=== PATIENT | male | born 1935 | race Caucasian/White ===

== ENCOUNTER 2017-07-08 09:08 | Outpatient (CLI) | payer MEDICARE, OTHER ==
--- NOTE | 2017-07-08 10:47 | Ultrasound Report ---
CAROTID DUPLEX: 07/08/2017 CLINICAL INDICATION: Stenosis. COMPARISON: 10/13/2006 TECHNIQUE: Real-time sonographic vascular imaging was performed by the clinical informatics strategist through the carotid arteries utilizing both color-flow and Doppler spectral analysis. Multiple sales representative business courses static images were saved for review. Vessel PSV cm/sec 2D Plaque Estimate % EDV cm/sec ICA/CCA PSV % Stenosis RCCA Prox 70 -- RCCA Dist 169 6 RECA 170 -- RT BULB 351 -- 26 2.1 MARIBEL Prox 252 -- 34 1.5 MARIBEL Mid 139 -- 2 0.8 MARIBEL Dist 82 -- 12 0.5 RVA 50 RVA flow direction: Antegrade. Vessel PSV cm/sec 2D Plaque Estimate % EDV cm/sec ICA/CCA PSV % Stenosis LCCA Prox 124 -- LCCA Dist 80 9 LECA 280 -- LFT BULB 90 -- 10 1.1 LICA Prox 105 -- 13 1.3 LICA Mid 108 -- 20 1.4 LICA Dist 125 -- 1.6 15 LVA 63 LVA flow direction: Antegrade. Velocity criteria are extrapolated from diameter data as defined by the Society of Radiologists in Ultrasound Consensus Conference Radiology 2003; 229; 340-346. Degree of Stenosis % ICA PSV cm/sec Plaque Estimate % ICA/CCA RSV Ratio ICA EDV cm/sec Normal < 125 None < 2.0 < 40 <50 < 125 < 50 < 2.0 < 40 50-69 125 - 130 >/= 50 2.0 - 4.0 40 - 100 >/= 70 but less than near occlusion > 230 >/= 50 > 4.0 > 100 Near occlusion High, low, or undetectable Visible lumen Variable Variable Total occlusion Undetectable No detectable lumen Not applicable Not applicable FINDINGS RIGHT: There is calcified plaquing in the carotid bulb, producing greater than 70% luminal diameter stenosis by velocity criteria, not significantly changed from previous. LEFT: There is calcified plaquing in the left carotid bulb, without evidence of a focal hemodynamically significant stenosis. The vertebral arteries demonstrate antegrade flow bilaterally. IMPRESSION: GREATER THAN 70% LUMINAL DIAMETER NARROWING OF THE RIGHT CAROTID BULB, STABLE FROM PREVIOUS. NO SIGNIFICANT INTERVAL CHANGE. MTDD
== END 2017-07-08 09:09 | disposition home or self-care (01) ==
LOC: DI 09:08
PROVIDERS: ATTEND Physician Assistant Medical
DX: I65.21 Occlusion and stenosis of right carotid artery (principal)
CPT/HCPCS: 93880

== ENCOUNTER 2018-06-10 07:07 | Outpatient (CLI) | payer MEDICARE, OTHER ==
[2018-06-10 12:35] LABS: BASOPHILS # (AUTO) 0.1 10^3/uL (0.0-0.1); BASOPHILS % (AUTO) 0.6 %; EOSINOPHILS # (AUTO) 0.6 10^3/uL (0.0-0.7); EOSINOPHILS % (AUTO) 6.8 %; HGB - HEMOGLOBIN 14.8 g/dL (14.0-18.0); LYMPHOCYTES # (AUTO) 2.5 10^3/uL (1.5-3.5); LYMPHOCYTES % (AUTO) 30.1 %; MEAN CORPUSCULAR HEMOGLOBIN 30.3 pg (27.0-31.0); MEAN CORPUSCULAR HGB CONC 34.3 g/dL (32.0-36.0); MEAN CORPUSCULAR VOLUME 88.4 fL (80.0-94.0); MEAN PLATELET VOLUME 7.7 fL (7.4-11.4); MONOCYTES # (AUTO) 0.6 10^3/uL (0.0-1.0); NEUTROPHILS # (AUTO) 4.6 10^3/uL (1.5-6.6); NEUTROPHILS % (AUTO) 55.5 %; PLT - PLATELET COUNT 292 10^3/uL (130-450); RED BLOOD COUNT 4.88 10^6/uL (4.70-6.10); RED CELL DISTRIBUTION WIDTH 14.7 % (12.0-15.0); WHITE BLOOD COUNT 8.3 x10^3/uL (4.8-10.8)
[2018-06-10 13:08] LABS: HB2 TOTAL 16.4 g/dL; HEMOGLOBIN A1C 0.78 g/dL; HEMOGLOBIN A1C % 6.5 % (4.6-6.2)
[2018-06-10 13:51] LABS: ALBUMIN 4.1 g/dL (3.2-5.5); ALBUMIN/GLOBULIN RATIO 1.2 (1.0-2.2); ALKALINE PHOSPHATASE 51 IU/L (42-121); ALT ALANINE AMINOTRANSFERASE 23 IU/L (10-60); AST ASPARTATE AMINOTRANSFERASE 25 IU/L (10-42); BILIRUBIN,TOTAL 0.8 mg/dL (0.2-1.0); BUN - BLOOD UREA NITROGEN 26 mg/dL (6-20); CALCIUM 9.7 mg/dL (8.5-10.3); CARBON DIOXIDE - CO2 25 mmol/L (21-32); CHLORIDE 103 mmol/L (101-111); CHOL/HDL RATIO 6.7 (<5.0); CHOLESTEROL 242 mg/dL; CREATININE 1.6 mg/dL (0.6-1.2); GFR - MDRD 42 (>89); GLUCOSE 128 mg/dL (70-100); HDL CHOLESTEROL 36 mg/dL; LDL CHOLESTEROL,CALCULATED 151 mg/dL; LDL/HDL RATIO 4.2 (<3.6); SODIUM 137 mmol/L (135-145); TOTAL PROTEIN 7.6 g/dL (6.7-8.2); VLDL CHOLESTEROL 55 mg/dL
== END 2018-06-10 07:08 ==
LOC: LAB.WCP 07:07
PROVIDERS: ATTEND Physician Assistant
DX: I10 Essential (primary) hypertension (principal); E11.9 Type 2 diabetes mellitus without complications; E78.5 Hyperlipidemia, unspecified
CPT/HCPCS: 36415; 80053; 80061; 83036; 83721; 85025

== ENCOUNTER 2019-04-07 08:00 | Outpatient (CLI) | payer MEDICARE, OTHER ==
[2019-04-07 12:45] LABS: BASOPHILS # (AUTO) 0.1 10^3/uL (0.0-0.1); BASOPHILS % (AUTO) 1.4 %; EOSINOPHILS # (AUTO) 0.4 10^3/uL (0.0-0.7); EOSINOPHILS % (AUTO) 5.6 %; LYMPHOCYTES # (AUTO) 2.3 10^3/uL (1.5-3.5); LYMPHOCYTES % (AUTO) 28.9 %; MEAN CORPUSCULAR HEMOGLOBIN 29.9 pg (27.0-31.0); MEAN CORPUSCULAR HGB CONC 33.6 g/dL (32.0-36.0); MEAN CORPUSCULAR VOLUME 89.2 fL (80.0-94.0); MEAN PLATELET VOLUME 7.8 fL (7.4-11.4); MONOCYTES # (AUTO) 0.5 10^3/uL (0.0-1.0); MONOCYTES % (AUTO) 5.7 %; NEUTROPHILS # (AUTO) 4.6 10^3/uL (1.5-6.6); NEUTROPHILS % (AUTO) 58.4 %; PLT - PLATELET COUNT 290 10^3/uL (130-450); RED BLOOD COUNT 5.02 10^6/uL (4.70-6.10); RED CELL DISTRIBUTION WIDTH 14.6 % (12.0-15.0)
[2019-04-07 13:20] LABS: ALBUMIN 4.2 g/dL (3.2-5.5); ALBUMIN/GLOBULIN RATIO 1.1 (1.0-2.2); ALKALINE PHOSPHATASE 52 IU/L (42-121); ALT ALANINE AMINOTRANSFERASE 23 IU/L (10-60); AST ASPARTATE AMINOTRANSFERASE 26 IU/L (10-42); BILIRUBIN,TOTAL 0.8 mg/dL (0.2-1.0); BUN - BLOOD UREA NITROGEN 25 mg/dL (6-20); CALCIUM 9.5 mg/dL (8.5-10.3); CARBON DIOXIDE - CO2 21 mmol/L (21-32); CHLORIDE 104 mmol/L (101-111); CHOL/HDL RATIO 6.9 (<5.0); CHOLESTEROL 234 mg/dL; CREATININE 1.4 mg/dL (0.6-1.2); GFR - MDRD 49 (>89); GLUCOSE 120 mg/dL (70-100); HDL CHOLESTEROL 34 mg/dL; LDL CHOLESTEROL,CALCULATED 142 mg/dL; LDL/HDL RATIO 4.2 (<3.6); SODIUM 136 mmol/L (135-145); TOTAL PROTEIN 7.9 g/dL (6.7-8.2); VLDL CHOLESTEROL 58 mg/dL
[2019-04-07 13:44] LABS: HEMOGLOBIN A1C 0.73 g/dL; HEMOGLOBIN A1C % 6.3 % (4.6-6.2)
== END 2019-04-07 08:01 | disposition home or self-care (01) ==
LOC: LAB.WCP 08:00
PROVIDERS: ATTEND Physician Assistant
DX: E11.9 Type 2 diabetes mellitus without complications (principal); I10 Essential (primary) hypertension; E78.5 Hyperlipidemia, unspecified
CPT/HCPCS: 36415; 80053; 80061; 83036; 83721; 84443; 85025

== ENCOUNTER 2019-04-26 07:33 | Outpatient (CLI) | payer MEDICARE, OTHER ==
--- NOTE | 2019-04-26 13:01 | Ultrasound Report ---
Reason: CAROTID ARTERY STENOSIS Procedure Date: 04/26/2019 Accession Number: [id number] / [id number] Procedure: US - Carotid Doppler Complete CPT Code: FULL RESULT: EXAM: BILATERAL CAROTID AND VERTEBRAL ARTERY DUPLEX DOPPLER ULTRASOUND: EXAM DATE: 04/26/2019 09:12 AM CLINICAL HISTORY: Carotid artery stenosis. COMPARISON: CAROTID DOPPLER COMPLETE 07/08/2017 9:24 AM. TECHNIQUE: Grayscale imaging, color Doppler, and duplex spectral Doppler were used to evaluate the carotid and vertebral arteries bilaterally. Static images were obtained. FINDINGS: Intimal thickening is seen bilaterally. Echogenic shadowing plaque is seen at the right carotid bulb region, visually approximately 70% as seen on image 11. Waveforms in the downstream right internal carotid artery demonstrate preserved brisk systolic upstroke. Bilateral waveforms demonstrate early collapse of the diastolic component suggesting the possibility of aortic insufficiency possibly due to aortic valve stenosis given the pronounced early diastolic dip. The left carotid system also demonstrates atherosclerotic disease which reaches up to 50% visually on grayscale Doppler. Normal antegrade flow is present in bilateral vertebral arteries. VELOCITIES (cm/sec): Right CCA mid: PSV 50 cm/sec CCA dist: PSV 39 cm/sec ICA prox: PSV 161 cm/sec, EDV 21 cm/sec ICA mid: PSV 176 cm/sec ICA dist: PSV 77 cm/sec ECA: PSV 227 cm/sec Vert: PSV 41 cm/sec ICA/CCA: 3.5 Left CCA mid: PSV 86 cm/sec CCA dist: PSV 78 cm/sec ICA prox: PSV 114 cm/sec, EDV 25 cm/sec ICA mid: PSV 96 cm/sec, EDV 26 cm/sec ICA dist: PSV 88 cm/sec, EDV 13 cm/sec ECA: PSV 330 cm/sec Vert: PSV 44 cm/sec ICA/CCA: 1.32 ICA diameter stenosis: Right: <50% by velocity and <70% by NASCET criteria. Left: <50% by velocity and <70% by NASCET criteria. IMPRESSION: 1. By grayscale and Doppler evaluation, significant bilateral carotid artery plaquing as described. 2. In the right carotid artery system there is 50-69% stenosis by ICA to CCA ratio and peak systolic velocity with a stenosis closer to 70% by morphologic evaluation and assessment of waveforms. 3. In the left carotid artery there are no elevated carotid artery velocities to suggest hemodynamically significant stenosis. 4. Normal antegrade flow is present in bilateral vertebral arteries. 5. Question aortic valve pathology as described above, nonspecific but most likely aortic regurgitation in the setting of aortic stenosis. General Recommendations: Stenosis =50% ICA - Follow-up ultrasound 6-12 months Stenosis <50% ICA - High Risk Patient with plaque - Follow-up ultrasound 1-2 years Normal Study but High Risk Patient - Follow-up ultrasound 3-5 years Management recommendations and diagnostic criteria are based on current IAC endorsed standards in Carotid Artery Stenosis: Grayscale and Doppler Ultrasound Diagnosis. Validated velocity measurements with angiographic measurements and velocity criteria are extrapolated from diameter data as defined by the Society of Radiologists in Ultrasound Consensus Conference Radiology 2003; 229;340-346. RADIA
== END 2019-04-26 07:34 | disposition home or self-care (01) ==
LOC: DI 07:33
PROVIDERS: ATTEND Physician Assistant
DX: I65.23 Occlusion and stenosis of bilateral carotid arteries (principal)
CPT/HCPCS: 93880

== ENCOUNTER 2022-03-11 10:15 | Outpatient (CLI) | payer MEDICARE, OTHER | END 2022-03-11 23:59 | disposition home or self-care (01) | LOC: LAB.N 10:15 | PROVIDERS: ATTEND Physician Assistant Medical | DX: N30.00 Acute cystitis without hematuria (principal) | CPT/HCPCS: 87086; 87181 ==

== ENCOUNTER 2022-03-25 08:00 | Outpatient (CLI) | payer MEDICARE, OTHER | END 2022-03-25 23:59 | disposition home or self-care (01) | LOC: LAB.N 08:00 | PROVIDERS: ATTEND Family Medicine | DX: N30.00 Acute cystitis without hematuria (principal) | CPT/HCPCS: 87086 ==

== ENCOUNTER 2022-09-19 10:39 | Outpatient (CLI) | payer MEDICARE, OTHER ==
[2022-09-19] MEDS ORDERED: iohexoL-300 100 ML VIAL ONE (10:43)
[2022-09-19] MEDS ORDERED: DIATRIZOATE MEGLU/DIATRIZO SOD 30 ML BOTTLE PO ONE ×2 (10:43→12:15)
[2022-09-19 10:56] LABS: BASOPHILS # (AUTO) 0.1 10^3/uL (0.0-0.1); BASOPHILS % (AUTO) 0.5 %; EOSINOPHILS # (AUTO) 0.4 10^3/uL (0.0-0.7); EOSINOPHILS % (AUTO) 3.9 %; HCT - HEMATOCRIT 39.4 % (42.0-52.0); HGB - HEMOGLOBIN 12.8 g/dL (14.0-18.0); LYMPHOCYTES # (AUTO) 2.5 10^3/uL (1.5-3.5); LYMPHOCYTES % (AUTO) 22.4 %; MEAN CORPUSCULAR HGB CONC 32.5 g/dL (32.0-36.0); MEAN CORPUSCULAR VOLUME 89.3 fL (80.0-94.0); MEAN PLATELET VOLUME 8.7 fL (7.4-11.4); MONOCYTES # (AUTO) 0.8 10^3/uL (0.0-1.0); MONOCYTES % (AUTO) 6.8 %; NEUTROPHILS # (AUTO) 7.4 10^3/uL (1.5-6.6); PLT - PLATELET COUNT 339 10^3/uL (130-450); RED BLOOD COUNT 4.41 10^6/uL (4.70-6.10); RED CELL DISTRIBUTION WIDTH 14.2 % (12.0-15.0); WHITE BLOOD COUNT 11.2 x10^3/uL (4.8-10.8)
[2022-09-19 11:25] LABS: ALBUMIN 3.7 g/dL (3.2-5.5); ALBUMIN/GLOBULIN RATIO 1.1 (1.0-2.2); ALKALINE PHOSPHATASE 53 IU/L (42-121); ALT ALANINE AMINOTRANSFERASE 15 IU/L (10-60); AST ASPARTATE AMINOTRANSFERASE 20 IU/L (10-42); BILIRUBIN,TOTAL 0.5 mg/dL (0.2-1.0); BUN - BLOOD UREA NITROGEN 32 mg/dL (6-20); CALCIUM 9.8 mg/dL (8.5-10.3); CARBON DIOXIDE - CO2 24 mmol/L (21-32); CHLORIDE 103 mmol/L (101-111); CHOL/HDL RATIO 6.4 (<5.0); CHOLESTEROL 225 mg/dL; CREATININE 1.4 mg/dL (0.6-1.2); GFR - MDRD 48 (>89); GLUCOSE 129 mg/dL (70-100); HDL CHOLESTEROL 35 mg/dL; LDL CHOLESTEROL,CALCULATED 136 mg/dL; LDL/HDL RATIO 3.9 (<3.6); SODIUM 137 mmol/L (135-145); TOTAL PROTEIN 7.2 g/dL (6.7-8.2); TRIGLYCERIDES 272 mg/dL; VLDL CHOLESTEROL 54 mg/dL
[2022-09-19 11:32] LABS: THYROID STIMULATING HORMONE 1.08 uIU/mL (0.34-5.60)
[2022-09-19 11:41] LABS: ESTIMATED AVERAGE GLUCOSE 140 mg/dL (70-100); HEMOGLOBIN A1c% 6.5 % (4.27-6.07)
[2022-09-19] MEDS ORDERED: iohexoL-300 100 ML VIAL IVP ONE (12:14)
--- NOTE | 2022-09-19 14:40 | CT Report ---
PROCEDURE: ABDOMEN/PELVIS W INDICATIONS: UNINTENTIONAL WEIGHT LOSS CONTRAST: 100ml omni 300 TECHNIQUE: After the administration of oral and intravenous contrast, 5 mm thick sections acquired from the diap hragms to the symphysis. 5 mm thick coronal and sagittal reformats were acquired. For radiation dos e reduction, the following was used: automated exposure control, adjustment of mA and/or kV accordin g to patient size. COMPARISON: None. FINDINGS: Image quality: Excellent. ABDOMEN: Lung bases: Lung bases are clear. Heart size is normal. At least moderate coronary artery calcific ations. Small hiatal hernia. Solid organs: Liver and spleen are normal in size and enhancement. Gallbladder contains a tiny gall stone in the neck. No gallbladder wall thickening. Gallbladder is partially contracted. Biliary syst em is non dilated. Pancreas enhances normally. No adrenal nodules. Kidneys demonstrate normal size and enhancement, without hydronephrosis. Peritoneum and bowel: There is a suggestion of a possible incompletely circumferential lesion of the proximal to midportion of the ascending colon. Reference images 49/3 (axial imaging) and image 81/6 ( coronal reformats). Findings are highly suspicious for a possible adenocarcinoma of the right colon. There is indistinctness of the surrounding fat which may potentially represent spread outside the ser osal surface of the colon. This is not definite. Sigmoid diverticulosis. Comment: Recommend colonoscopy to evaluate for possible right colonic lesion. No free fluid or air. Nodes and vessels: There are some borderline retroperitoneal lymph nodes, which may potentially repre sent malignant lymph nodes. This is not definite. For example, on image 47/3 there is an aortocaval l ymph node measuring 2.4 x 1.2 cm. There is a lymph node to the right of the inferior vena cava measur ing 1.2 x 1.5 cm. Aorta and inferior vena cava are normal in size. Miscellaneous: No ventral hernias. PELVIS: Genitourinary: Bladder wall thickness is normal. Prostate is diffusely enlarged. Miscellaneous: No inguinal hernias or adenopathy. Bones: No suspicious bony lesions. No vertebral body compression fractures. IMPRESSION: 1. Possible incompletely circumferential adenocarcinoma of the ascending colon. 2. Borderline retroperitoneal adenopathy, which may potentially represent malignant adenopathy. These lymph nodes are not abnormally enlarged by size criteria. 3. No other evidence of metastatic disease. Comment: Recommend colonoscopy to evaluate for possible right colonic lesion. Additionally, there may potentially be a role for PET CT if the colonoscopy is positive to evaluate the retroperitoneal lymp h nodes. Reviewed by: Ariel Nayak MD on 09/19/2022 2:39 PM PST Approved by: Ariel Nayak MD on 09/19/2022 2:39 PM PST Station ID: [id number]
== END 2022-09-19 10:40 | disposition home or self-care (01) ==
LOC: LAB 10:39
PROVIDERS: ATTEND Family Medicine
DX: I12.9 Hypertensive chronic kidney disease with stage 1 through stage 4 chronic kidney disease, or unspecified chronic kidney disease (principal); E11.22 Type 2 diabetes mellitus with diabetic chronic kidney disease; N18.31 Chronic kidney disease, stage 3a; E78.5 Hyperlipidemia, unspecified; R63.4 Abnormal weight loss; R68.81 Early satiety; R10.13 Epigastric pain; R93.3 Abnormal findings on diagnostic imaging of other parts of digestive tract; R59.0 Localized enlarged lymph nodes
CPT/HCPCS: 36415; 74177; 80053; 80061; 83036; 84443; 85025; Q9963; Q9967; 83721

== ENCOUNTER 2022-10-22 07:31 | Day surgery (SDC) | payer MEDICARE, OTHER ==
[2022-10-22] MEDS ORDERED: LACTATED RINGERS 1,000 ML IV ONE ×2 (08:15→10:22)
--- NOTE | 2022-10-22 09:05 | ANESTHESIA ---
Pre-Anesthesia VS, & Labs - Diagnosis screening exam - Procedure colonoscopy Vital Signs: Temp Pulse Resp BP Pulse Ox O2 Flow Rate 36.2 C L 107 H 14 130/71 100 10/22/22 07:56 10/22/22 07:56 10/22/22 07:56 10/22/22 07:56 10/22/22 07:56 Height: 6 ft 2 in Weight (kg): 85 kg Body Mass Index: 24.0 BMI Classification: Normal - NPO >8 hours - Lab Results Current Lab Results: Laboratory Tests 10/22/22 08:08: POC Whole Bld Glucose 168 H Home Medications and Allergies Metformin HCl 1,000 mg PO BID 06/08/15 amLODIPine [Norvasc] 5 mg PO DAILY 06/08/15 hydroCHLOROthiazide [Hydrochlorothiazide] 25 mg PO DAILY 06/08/15 lisinopriL [Lisinopril] 10 mg PO DAILY 06/08/15 Metoprolol Tartrate 50 mg PO BID 06/11/15 Potassium Chloride 10 meq PO DAILY 06/11/15 Allergies/Adverse Reactions: Allergies Allergy/AdvReac Type Severity Reaction Status Date / Time [id number] Reductase Allergy Unknown Verified 10/21/22 13:00 Inhibitor [Xqytynf-Tvc-Voo Reductase Inhibitor] Anes History & Medical History - Anesthetic History Anesthesia Complications: reports: No previous complications - Medical History Cardiovascular: reports: Hypertension, High cholesterol Pulmonary: reports: None Gastrointestinal: reports: None Urinary: reports: None Neuro: reports: None Musculoskeletal: reports: None Endocrine/Autoimmune: reports: Type 2 diabetes Skin: reports: None Smoking Status: Former smoker Psychosocial: reports: No issues indicated History of Cancer?: Yes - Surgical History General: reports: Colonoscopy Eyes Ears Nose Throat (EENT): reports: Tonsil/Adenoidectomy Exam General: Alert, Oriented x3, Cooperative, No acute distress Dental: Poor dentition Mouth Openin Fingerbreadth Neck Mobility: Normal Mallampati classification: II Thyromental Distance: 4-6 cm Mental/Cognitive Status: Alert/Oriented X3, Normal for patient Plan Anesthesia Type: Total IV Consent for Procedure(s) Verified and Reviewed: Yes Code Status: Attempt Resuscitation ASA classification: 2-Mild systemic disease Is this case an emergency?: No
[2022-10-22] MEDS ORDERED: PROPOFOL 500 MG/50 ML 500 MG/50 ML VIAL ONE (09:46)
[2022-10-22] MEDS ORDERED: PROPOFOL 200 MG/20 ML VIAL IVP ONE (10:04)
[2022-10-22 11:25] VITALS: BP 138/68
--- NOTE | 2022-10-22 12:12 | ANESTHESIA POST OP EVALUATION ---
Anesthesia Post Eval - Post Anesthesia Eval Vitals: Last Vital Signs Temp 36.2 C L 10/22/22 11:00 Pulse 93 10/22/22 11:00 Resp 16 10/22/22 11:00 BP 138/68 H 10/22/22 11:00 Pulse Ox 100 10/22/22 11:00 O2 Flow Rate CV Function Including HR & BP: Stable Pain Control: Satisfactory Nausea & Vomiting: Negative Mental Status: Baseline Respiratory Status: Airway Patent Hydration Status: Satisfactory Anesthesia Complications: None
== END 2022-10-22 07:32 | disposition home or self-care (01) ==
LOC: SDS 07:31
PROVIDERS: ATTEND Surgery
PROC: 0DBL8ZZ Excision of Transverse Colon, Via Natural or Artificial Opening Endoscopic (ICD-10-PCS; 2022-10-22)
PROC: 0DB48ZX Excision of Esophagogastric Junction, Via Natural or Artificial Opening Endoscopic, Diagnostic (ICD-10-PCS; principal; 2022-10-22 08:45)
PROC: 0DBK8ZX Excision of Ascending Colon, Via Natural or Artificial Opening Endoscopic, Diagnostic (ICD-10-PCS; 2022-10-22 08:45)
DX: C18.2 Malignant neoplasm of ascending colon (principal); C16.0 Malignant neoplasm of cardia; D12.3 Benign neoplasm of transverse colon; K64.8 Other hemorrhoids; K21.9 Gastro-esophageal reflux disease without esophagitis; E11.9 Type 2 diabetes mellitus without complications; Z87.891 Personal history of nicotine dependence
CPT/HCPCS: 43239; 45380; 45385; J7120